=== PATIENT | male | born 1950 | race Caucasian/White ===

== ENCOUNTER 2024-10-26 12:52 | Outpatient (REF) | payer MEDICARE, SELFPAY ==
--- OUTSIDE RECORDS SUMMARY | 2024-10-26 13:27 | XMS_ITS | Encounter Summary ---
Author Organization [facility] Address [address] [place] [id number] Phone Care Team Providers Care Lathe Puller Name Role Phone Viktor Bella Primary Care Provid er Travon Ortega MD Unavailable +1- Radha Gonzalez MD Unavailable [phone] Tremaine Willams MD Unavailable [phone] Gerber Pereira MD, PhD Unavailable Travon Ortega MD Unavailable +- Encounter Details Date Type Department Care Team (Late st Contact Info) Description 10/11/2021 Procedure Pass [facility] Periop [address] [place] [address] Social History Tobacco Use Types Packs/Day Years Used Date Smoking Tobacco: Former Cigarettes 0.5 5 0 03/24/1994 - 03/24/1999 Smokeless Tobacco: Never Alcohol Use Standard Drinks/Week Comments Yes 0 (1 standard drink = 0.6 oz pure alcohol) very rarely has an alcoholic drink Sex and Gender Information Value Date Recorded Sex Assigned at Not on file Legal Sex Male 11:09 AM EDT Gender Identity Not on file Sexual Orientation Not on file documented as of this encounter Plan of Treatment Not on file documented as of this encounter Visit Diagnoses Not on filedocumented in this encounter Care Teams Lathe Puller Relationship Specialty Start Date End Date Viktor Bella PA [address] [place] [address] PCP - General Unknown Provider Specialty 07/19/21 Travon Ortega MD [address] [address] [place] [phone] [email or web address] Urology 07/19/21 Radha Gonzalez MD [address] [place] [address] [email or web address] Medical Oncology 07/20/21 Tremaine Willams MD [address] [place] [address] [email or web address] 07/20/21 Gerber Pereira MD, PhD [address] [place] [id number] [email or web address] Radiation Oncology 07/20/21 Travon Ortega MD [address] [phone] [email or web address] Urology 08/08/21 documented as of this encounter Additional Source Comments The information contained in this document represents components of the legal health record. It is not the complete legal health record.[facility]
--- OUTSIDE RECORDS SUMMARY | 2024-10-26 13:28 | XMS_ITS ---
Author Name [facility] Organization Unknown Care Team Organization Name Specialty Phone Email Start Date End Da te [facility] SASHA CHÁVEZ Primary Care 08/30/2022 4 [facility] Ewa Deelon Primary Care 01/29/2022 4
--- OUTSIDE RECORDS SUMMARY | 2024-10-26 13:28 | XMS_ITS | Clinical Summary ---
Author Organization 175 [facility] Address [address] [place] [address] Phone Care Team Providers Care Teacher Specialist Name Role Phone Viktor Bella Primary Care Provider [phone] Allergies No known active allergies Medications ibuprofen (ADVIL,MOTRIN) 200 mg tablet 2 tabs bid prn Active lovastatin (MEVACOR) 20 mg tablet Take 1 tablet (20 mg total) by mouth at bedtime. at bedtime. 90 tablet 3 06/16/2024 Active valsartan (DIOVAN) 160 mg tablet Take 1 tablet (160 mg total) by mouth 1 (one) time each day. 90 tablet 3 06/16/2024 Active aspirin 81 mg EC tablet Take 1 tablet (81 mg total) by mouth daily. 10/11/2021 Active multivitamin (multivitamin-ir on-minerals) tablet Take 1 tablet by mouth daily. Active Active Problems Problem Noted Date Diagnosed Date Prostate cancer ([facility] V24, [facility] V28) 10/29 Overview (03/02/2024): prostatectomy Rosy Leela september 2021 Elevated PSA 05/08/2021 LVH (left ventricular hypertrophy) 04/28/2017 Obstructive sleep apnea 03/11/2013 PLMD (periodic limb movement disorder) 3 Erectile dysfunction 07/29/2012 Hyperlipidemia 02/04/2012 Colon polyp 11/30/2008 Overview (03/02/2024): Last colonoscopy 2000, two polyps Hypertension 11/30/2008 Psoriasis 11/30/2008 Psoriatic arthritis ([facility] V24, [facility] V28) 0 11/30/2008 Vision loss 11/30/2008 Overview (03/02/2024): 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 Encounters Date Type Department Care Team Description 09/23/2024 12:45 PM EDT Office Visit Adult Medicine [address] [phone] Kathryn Meyer PA Urine frequency (Primary Dx); Stress incontinence of urine; Microscopic hematuria; History of prostate cancer 08/19/2024 9:30 AM EDT Office Visit Adult [address] [phone] Kathryn Meyer PA Primary hypertension (Primary Dx) from Last 3 Months Immunizations Name Administration Dates Next Due Influenza Quadravalent, MDCK , 0.5ml, with preservative (Flucelvax) 6mo and older 03/19/2017 Influenza trivalent, 0.5mL ( Fluad) 65yo and older 12/17/2023,12/12/2022,02/09/2020,02/04,12/02/2017 Influenza trivalent, 0.5mL, preservative free (Fluarix; FluLaval; Fluzone) ages 6mo and older (Afluria) 3 years and older 01/18/2016,12/08/2014,01/26/2014,02/03 Influenza, Unspecified 03/08/2022,12/18/2020 [email or web address] SARS-CoV-2 COVID-19, mRNA, LNP-S, preservative free 03/08/2022,12/18/2020 Pneumococcal conjugate 20 va lent (Prevnar 20, PCV 20) 2mo and older 06/16/2024 Pneumococcal polysaccharide 23 valent (Pneumovax 23) 2yo and older 02/04/2019 Td Tetanus diptheria (Tdvax) 7yo and older 02/04/2019 Tdap Tetanus diptheria acell ular pertussis (Boostrix; Adacel) 7yo and older 11/30/2008 Surgical History Surgery Date Site/Laterality Comments COLONOSCOPY 03/03/2009 PROCEDURE: HISTORICAL COLONOSCOPY; COMMENT: diverticulosis and hemorrhoids; repeat in five years COLONOSCOPY 2002 [facility] PROCEDURE: HISTORICAL COLONOSCOPY; COMMENT: sigmoid adenoma COLONOSCOPY 04/21/2014 PROCEDURE: HISTORICAL COLONOSCOPY; COMMENT: tics and hemorrhoids; repeat in in 5 yrs OTHER SURGICAL HISTORY PROCEDURE: HISTORY OTHER; COMMENT: left eye removed 11 COLONOSCOPY 09/2019 PROCEDURE: HISTORICAL COLONOSCOPY; COMMENT: normal repeat 5 years Medical History Medical History Date Comments Psoriasis 11/30/2008 DX:Psoriasis Psoriatic arthritis (CMS/HCC V24, CMS/HCC V28) 11/30/2008 DX:Psoriatic arthritis ([facility]) Hypertension 11/30/2008 DX:Hypertension Colon polyp 11/30/2008 DX:Colon polyp Vision loss 11/30/2008 DX:Vision loss; COMMENT: 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 Family history of prostate cancer 03/14/2011 DX:Family history of prostate cancer Hyperlipidemia 02/04/2012 DX:Hyperlipidemi a Erectile dysfunction 07/29/2012 DX:Erectile dysfunction Obstructive sleep apnea 03/11/2013 DX:Obstr uctive sleep apnea PLMD (periodic limb movement disorder) 3 DX:PLMD (periodic limb movement disorder) Family History Medical History Relation Name Comments Arthritis Brother 1 Other: etoh abuse Brother 2 Arthritis Father CABG Father Hyperlipidemia Father Hypertension Father Prostate cancer Father Stroke Father Arthritis Mother Other cancer Mother not sure Lung cancer Uncle 1 smoker Relation Name Status Comments Brother 1 Alive Alcohol abuse Brother 2 Father (Age 84) Prostate c ancer, hypertension,, CABG, stroke, CHF Mother Alive ovarian cancer, dementia Uncle 1 lung ca smoker Uncle 2 cancer - not mcclure re what type Social History Tobacco Use Types Packs/Day Years Used Date Smoking Tobacco: Former Cigarettes 0.3 4.3 0 12/01/1974 - 03/24/1979 Smokeless Tobacco: Never Tobacco Cessation:Counseling Given: Not Answered Alcohol Use Standard Drinks/Week Comments Yes 0 (1 standard drink = 0.6 oz pur e alcohol) Housing Instability Answer Date Recorde d Are you worried that in the next 2 months you may not have stable housing? No 06/15/2024 Food Access & Nutrition Answer Date Rec orded Do you have access to a vari ety of food including fruits and vegetables? Yes 06/15/2024 Access to Healthcare Answer Date Record ed Within the last 3 months, ho w many times did you visit the emergency department for your medical care? 0 06/15/2024 Health Literacy Answer Date Recorded How often do you need to hav e someone help you when you read instructions, pamphlets, or other written material from your doctor or pharmacy? Never 06/15/2024 Caregiver: How often do you need to have someone help you when you read instructions, pamphlets, or other written material from your doctor or pharmacy? Not on file 06/15/2024 Financial Risk Answer Date Recorded How hard is it for you to pa y for the very basics like food, housing, medical care, and air conditioning / heating? Not very hard 06/15/2024 Transportation Answer Date Recorded Has the lack of transportati on kept you from meetings, work, or from getting things needed for daily living? No Has the lack of transportati on kept you from medical appointments or from getting medications? No 06/15/2024 Social Isolation Answer Date Recorded How often do you feel lonely or isolated from th ose around you? Never 06/15/2024 Food Risk Answer Date Recorded Within the past 12 months we worried whether our food would run out before we got money to buy more. Never true 06/15/2024 Within the past 12 months th e food we bought just didn't last and we didn't have money to get more. Never true 06/15/2024 Dependent Care Answer Date Recorded Do you need help finding or paying for care for your loved ones. For example, teacher early childhood development or elderly care for an older adult? No 06/15/2024 Education Answer Date Recorded Do you think completing more education or training, like finishing a GED, going to college, or learning a trade, would be helpful for you? No 06/15/2024 Employment and Income Answer Date Recor ded During the last four weeks, have you been actively looking for work? No 06/15/2024 Living Situation Answer Date Recorded What is your living situation? 0 06/15/2024 Sex and Gender Information Value Date Recorded Sex Assigned at Not on file Legal Sex Male 9:13 AM EST Gender Identity Not on file Sexual Orientation Not on file Obstetrics History Last Filed Vital Signs Vital Sign Reading Time Taken Comments Blood Pressure 135/64 09/23/2024 12:48 PM EDT Pulse 63 09/23/2024 12:48 PM EDT Temperature 36.5 C (97.7 F) 09/23/2024 12:48 PM EDT Respiratory Rate 16 09/23/2024 12:48 PM EDT Oxygen Saturation 95% 09/23/2024 12:48 PM EDT Inhaled Oxygen Concentration - - Weight 105 kg (231 lb 3.2 oz) 09/23/2024 12:48 P M EDT Height 177.8 cm (5' 10 ) 09/23/2024 12:48 PM EDT Body Mass Index 33.17 09/23/2024 12:48 PM EDT Plan of Treatment Upcoming Encounters Date Type Department Care Team (Late st Contact Info) Description 02/25/2025 8:30 AM EST Office Visit Adult Medicine [facility] [address] [place] [phone] Viktor Bella PA [address] [place] [address] 06/14/2025 3:30 PM EDT Office Visit Pulmonolgy - [place] 175 [facility] [address] [place] [phone] Eda Steinberg MD 175 [facility] [address] [place] [address] Health Maintenance Due Date Last Done Comments Zoster Vaccines (1 of 2) 09/18/1969 COVID-19 Vaccine ( season) 2023 03/08/2022, 12/18/2020, 06/07/2020, Additional history exists Colorectal Cancer Screening: Colonoscopy 10/13/2024 10/14/2019, 10/14/2019 Influenza Vaccine (#1) 2024 , 12/12/2022, 03/08/2022, Additional history exists Medicare Annual Wellness Visit 12/16/2024 12/17/2023 Social Influencers of Health Screening 06/15/2025 06/15/2024 Hypertension/CHF/CAD Annual BMP Blood Test 06/16/2025 06/16/2024, 12/17/2023, 12/17/2023, Additional history exists Falls Risk Assessment 09/23/2025 09/23/2024 RSV Immunization Adult Patients (1 - 1-dose 75+ series) 09/18/2027 Cholesterol Screening (Lipid Panel) 12/16/2028 12/17/2023, 12/17/2023 DTaP,Tdap,and Td Vaccines (3 - Td or Tdap) 02/04/2029 02/04/2019, 11/30/2008 Hepatitis C Screening Completed 07/29/2012 Abdominal Aortic Aneurysm (AAA) Screen Completed 12/10/2017, 12/10/2017 Pneumococcal Vaccine: 50+ Years Completed 06/16/2024, 02/04/2019 Depression Screening Completed 09/22/2024, 12/17/19 24 HIB Vaccines Aged Out No longer eligi ble based on patient's age to complete this topic HPV Vaccines Aged Out No longer eligi ble based on patient's age to complete this topic Hepatitis A Vaccines Aged Out No long er eligible based on patient's age to complete this topic Hepatitis B Vaccines Aged Out No long er eligible based on patient's age to complete this topic IPV Vaccines Aged Out No longer eligi ble based on patient's age to complete this topic MMR Vaccines Aged Out No longer eligi ble based on patient's age to complete this topic Meningococcal ACWY Vaccine Aged Out N o longer eligible based on patient's age to complete this topic Meningococcal B Vaccine Aged Out No l onger eligible based on patient's age to complete this topic RSV Immunization Patients Under 20 months Aged Out No longer eligible based on patient's age to complete this topic Varicella Vaccines Aged Out No longer eligible based on patient's age to complete this topic Procedures Procedure Name Priority Date/Time Associated Diagnosis Comments CULTURE URINE Routine 09/23/2024 1:18 PM EDT Urine frequency POC URINE NON-AUTO W/O MICRO Routine 09/23/2024 1:16 PM EDT Urine frequency POC GLUCOSE Routine 09/23/2024 1:15 PM EDT Urine frequency COMPREHENSIVE METABOLIC PANEL Routine 06/16/2024 9:34 AM EDT Subjective memory complaints Other hyperlipidemia Primary hypertension Obstructive sleep apnea LVH (left ventricular hypertrophy) Elevated PSA PLMD (periodic limb movement disorder) Prostate cancer ([facility] V24, [facility] V28) Need for vaccination against Streptococcus pneumoniae Hearing loss of right ear, unspecified hearing loss type DEPRESSION SCREENING Routine 12/17/2023 LIPID PANEL Routine 12/17/2023 COLONOSCOPY Routine 10/14/2019 US ABDOMINAL AORTA REAL TIME SCREEN STUDY AAA Routine 12/10/2017 7:46 AM EDT Hyperlipidemia, unspecified Essential (primary) hypertension Acute maxillary sinusitis, unspecified Arthropathic psoriasis, unspecified ([facility] V24, [facility] V28) Unspecified conjunctivitis Encounter for general adult medical examination without abnormal findings Encounter for immunization HEPATITIS C SCREENING Routine 07/29/2012 from Last 3 Months or Most Recently Relevant to Health Maintenance Results * Culture urine (09/23/2024 1:18 PM EDT) Culture, Urine No growth 09/24/2024 1:07 PM EDT [facility] Urine Urine specimen obtained by clean catch procedure / Unknown Non-blood Collection / Unknown 09/23/2024 1:18 PM EDT 09/23/2024 1:18 PM EDT us Kathryn Mitch [facility] MICROBIOLOGY - GENERAL ORDER SOLEDAD Final Result [facility] [address] [place] [address], * (ABNORMAL) POC Urine Non-Auto W/O Micro (09/23/2024 1:16 PM EDT) Leukocytes UA POC Negative Negative Nitrite UA POC Negative Negative Urobilinogen UA POC Negative Negative Protein UA POC Negative Negative PH UA POC 5.0 5.0 - 9.0 Blood UA POC Trace(A) Negative, Trace Specific Guston UA POC 1.015 1.001 - 1.035 Ketones UA POC 1+(A) Negative Bilirubin UA POC Negative Negative Glucose UA POC Normal Normal, Trace Color UA POC Dark Yellow CLARITY, URINE POC Clear Urine Urine specimen obtained by clean catch procedure / Unknown 09/23/2024 1:16 PM EDT us Kathryn Meyer PA POINT OF CARE TEST ENTER/EDIT OR DERABLES Final Result * POC glucose manually resulted (09/23/2024 1:15 PM EDT) Glucose POC 102 mg/dL Blood Capillary blood specimen / Unknown 09/23/2024 1:15 PM EDT us Kathryn Meyer PA POINT OF CARE TEST ENTER/EDIT OR DERABLES Final Result * Comprehensive metabolic panel (06/16/2024 9:34 AM EDT) [facility] Sodium 145 133 - 145 mmol/L LAB CHEMISTRY METHOD 06/16/2024 4:14 PM [facility] Potassium 4.5 3.5 - 5.5 mmol/L LAB CHEMISTRY METHOD 06/16/2024 4:14 PM [facility] Chloride 109 96 - 110 mmol/L LAB CHEMISTRY METHOD 06/16/2024 4:14 PM [facility] CO2 31 21 - 32 mmol/L LAB CHEMISTRY METHOD 06/16/2024 4:14 PM [facility] Anion Gap 5 3 - 11 LAB CHEMISTRY METHOD 06/16/2024 4:14 PM [facility] Glucose 97 70 - 100 mg/dL LAB CHEMISTRY METHOD 06/16/2024 4:14 PM [facility] BUN 17 5 - 25 mg/dL LAB CHEMISTRY METHOD 06/16/2024 4:14 PM [facility] Creatinine 1.02 0.70 - 1.30 mg/dL LAB CHEMISTRY METHOD 06/16/2024 4:14 PM [facility] eGFR 79 >=60 mL/min/1. 73m2 LAB CHEMISTRY METHOD 06/16/2024 4:14 PM [facility] Comment:Calculation based on the Chronic Kidney Disease Epidemiology Collaboration (CKD-EPI) equation refit without adjustment for race. BUN/Creatinine Ratio 16.7 LAB CHEMISTRY METHOD 06/16/2024 4:14 PM [facility] Calcium 9.7 8.5 - 10.5 mg/dL LAB CHEMISTRY METHOD 06/16/2024 4:14 PM [facility] AST (SGOT) 32 10 - 42 unit/L LAB CHEMISTRY METHOD 06/16/2024 4:14 PM [facility] ALT (SGPT) 33 10 - 60 unit/L LAB CHEMISTRY METHOD 06/16/2024 4:14 PM [facility] Alkaline Phosphatase 75 42 - 121 unit/L LAB CHEMISTRY METHOD 06/16/2024 4:14 PM [facility] Total Protein 6.7 6.0 - 8.0 g/dL LAB CHEMISTRY METHOD 06/16/2024 4:14 PM [facility] Albumin 4.1 3.2 - 5.0 g/dL LAB CHEMISTRY METHOD 06/16/2024 4:14 PM [facility] Total Bilirubin 0.5 0.0 - 1.4 mg/dL LAB CHEMISTRY METHOD 06/16/2024 4:14 PM [facility] Blood Venous blood specimen / Unknown Venipuncture / Unknown 06/16/2024 9:34 AM EDT 06/16/2024 9:34 AM EDT us Viktor CABALLERO LAB BLOOD ORDERABLES Lou l Result [facility] [address] [place] [address], [place] [phone] * Depression Screening (12/17/2023) Depression Screening abstracted Historical Provider HEALTH MAINTENANCE Final Result * Lipid panel (12/17/2023) Pathologist [facility] LDL/HDL Ratio 3 0 - 4 Triglycerides 45 0 - 150 mg/dL Cholesterol 176 0 - 200 mg/dL HDL 67 >=40 mg/dL LDL Cholesterol 100 0 - 100 mg/dL Blood Venous blood specimen / Unknown Historical Provider LAB BLOOD ORDERABLES Lou l Result * Colonoscopy (10/14/2019) Colonoscopy no interpretation , abstracted Anatomical Region Laterality Modality Other Historical Provider HEALTH MAINTENANCE Final Result * US ABDOMINAL AORTA REAL TIME SCREEN STUDY AAA (12/10/2017 7:46 AM EDT) Anatomical Region Laterality Modality Ultrasound 12/01/2017 4:19 PM EDT Narrative 12/10/2017 10:48 AM EDT History: Screening for abdominal aortic aneurysm. Ultrasound of the abdominal aorta: The abdominal aorta is normal in course, caliber and configuration. Proximal aortic AP diameter is 2.1 cm maximum. Mid aortic diameter is 1.9 cm, and distal aortic diameter is 1.6 cm. The common iliac arteries are normal in caliber as well. IMPRESSION: Negative screening examination for abdominal aortic aneurysm. Procedure Note Efrain Bunch MD - 03/12/2022 History: Screening for abdominal aortic aneurysm. Ultrasound of the abdominal aorta: The abdominal aorta is normal incourse, caliber and configuration. Proximal aortic AP diameter is 2.1 cm maximum. Mid aorticdiameter is 1.9 cm, and distal aortic diameter is 1.6 cm. The common iliac arteries are normalin caliber as well. IMPRESSION: Negative screening examination for abdominal aortic aneurysm. Viktor CABALLERO IMSebas US PROCEDURES Final R esult * Hepatitis C Screening (07/29/2012) Hepatitis C Screening abstracted us Historical Provider HEALTH MAINTENANCE Final Result from Last 3 Months or Most Recently Relevant to Health Maintenance Insurance [employer] [place] [employer]AGE Care Teams Teacher Specialist Relationship Specialty Start Date End Date Viktor Bella PA [address] [place] [address] PCP - General Internal Medicine 02/09/20
--- OUTSIDE RECORDS SUMMARY | 2024-10-26 13:28 | XMS_ITS | Clinical Summary ---
Author Organization [facility] Address [address] [place] [address] Care Team Providers Care Client Relationship Consultant Name Role Phone Unavailable Primary Care Provider Unavailabl e Allergies No known active allergies Medications * This document contains information received from the source organization and may not represent a complete record from that organization. No known medications Social History Tobacco Use Types Packs/Day Years Used Date Smoking Tobacco: Former Alcohol Use Standard Drinks/Week Comments Not Asked 0 (1 standard drink = 0.6 oz pur e alcohol) Sex and Gender Information Value Date Recorded Sex Assigned at Not on file Legal Sex Male 11:02 AM EDT Gender Identity Not on file Sexual Orientation Not on file Last Filed Vital Signs Vital Sign Reading Time Taken Comments Blood Pressure 138/82 09/06/2013 2:39 PM EDT Pulse 80 09/06/2013 2:39 PM EDT Temperature - - Respiratory Rate - - Oxygen Saturation - - Inhaled Oxygen Concentration - - Weight 109 kg (241 lb) 09/06/2013 2:39 PM EDT Height 182.9 cm (6') 09/06/2013 2:39 PM EDT Body Mass Index 32.69 09/06/2013 2:39 PM EDT Plan of Treatment Health Maintenance Due Date Last Done Comments Hepatitis C Screening 1950 DTaP/Tdap/Td (1 - Tdap) 1970 Pneumococcal 50+ years (1 of 1 - PCV) 2002 Zoster (Shingrix) (1 of 2) 2002 Ab[facility] 2017 COVID-19 Vaccine ( - 2023-2 5 season) 2023 Influenza (#1) 2024 RSV (1 - 1-dose 75+ series) 09/18/2027 HPV Vaccine (No Doses Required) Completed Hep A Aged Out No longer eligi ble based on patient's age to complete this topic Hep B Aged Out No longer eligi ble based on patient's age to complete this topic Hib Aged Out No longer eligi ble based on patient's age to complete this topic Meningococcal ACWY Aged Out No longer eligible based on patient's age to complete this topic Zoster (Zostavax) Discontinued
== END 2024-10-26 12:53 | disposition home or self-care (01) ==
LOC: HO.SH 12:52
PROVIDERS: Visit Provider Physician Assistant Medical
DX: Z01.118 Encounter for examination of ears and hearing with other abnormal findings (principal); H90.3 Sensorineural hearing loss, bilateral
CPT/HCPCS: 92557; 92567

== ENCOUNTER 2024-11-24 12:51 | Outpatient (AMB) | payer OTHER, SELFPAY ==
--- NOTE | 2024-11-24 13:10 | A.OFFVIS_ITS ---
Intake Visit Reasons: Memory Complaints Allergies No Known Allergies Allergy (Verified 11/17/24 13:41) HPI Comments Details: The patient is a 74-year-old male presenting with memory concerns. Memory issues have persisted for over a year and are described as gradual and ongoing. The patient struggles to recall instructions or details shortly after being told, and there is a reported familial history of dementia. These issues are noteworthy in light of his mother's history with dementia. Additionally, there is a significant history of hearing loss. The patient first noticed this condition during a phone call, prompting visits to a hearing center, where potential interventions like hearing aids were considered. The hearing loss was realized suddenly, although it had likely progressed unnoticed for a considerable time. He denies any history of diabetes but has essential hypertension, which he describes as long-standing. 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 He reports minimal alcohol consumption and no recent stress. [facility] Medical History (Updated 11/24/24 @ 13:39 by Ana Bowens MD) Vision loss Psoriatic arthritis Psoriasis Colon polyp HLD (hyperlipidemia) Erectile dysfunction PLMD (periodic limb movement disorder) EVA (obstructive sleep apnea) Left ventricular hypertrophy Prostate cancer Memory changes Hypertension Family History (Updated 11/17/24 @ 13:41 by Andre Gates [facility]) Mother Cancer Arthritis Father Prostate cancer HLD (hyperlipidemia) Hypertension Arthritis Stroke CABG (coronary artery bypass graft) planned Brother Arthritis H/O ETOH abuse Review of Systems Const Details: - Neurological: Reports memory issues over the past year; denies recent stress; history of essential hypertension. - Auditory: Reports hearing loss, recognized suddenly but progressed over time. - Ophthalmological: Artificial left eye due to infant injury. - Endocrinological: Denies diabetes. - Cardiovascular: Reports history of hypertension. - Psychological: Denies recent stress. Physical Exam Neuro Other: Mental Status: Alert and oriented to person, place, and time. Normal attention. Normal spontaneous speech, fluency, and comprehension. [place] score is 25. Cranial Nerves: Left eye is prosthetic. Right eye pupil is round reactive and extraocular muscles are intact. CN V: Facial sensation is normal. CN VII: Facial movements symmetrical. CN VIII: Hearing intact to bedside conversation is okay. CN IX, X: Palate elevates symmetrically. CN XI: Shoulder shrug and head turn symmetrical. CN XII: Tongue midline without atrophy or fasciculations. Motor: Deep tendon reflexes are trace to absent. Extrapyramidal: Full facial expressions and blinking. No rigidity. Movements are appropriate with no tremor or abnormality. Speech: Normal; no dysarthria or tremor. Assessment & Plan Assessment & Plan (1) MCI (mild cognitive impairment): Comment: MOCA at off on Nov 24, 2024: 25 Labs at [facility] in 2024: B12 621, Folate 20, TSH 1.66 MRI brain WWO at [facility] in Jun 2024: Mild MVD Code(s): G31.84 - Mild cognitive impairment of uncertain or unknown etiology Category: Medical Plan: During the consultation, I discussed the primary concern of memory impairment with the patient and his friend, related to possible cognitive decline and family history of dementia. I explained the likelihood as well as the possibility of early-stage Alzheimer's disease as a contributory factor, and we coordinated for a blood test to explore this further. The option of an advanced diagnostic assessment was outlined if initial tests are inconclusive. Follow-up was established for one month to review test results and reassess management plans accordingly. All points of discussion were confirmed comprehensively with the patient and friend for mutual understanding and consent. Plan Impression: Mild cognitive impairment with fair suspicion of Alzheimer Recommendation: Serum test to check for cerebral beta amyloid load. His was advised to order picker/assembler brain CD for review at next was Orders: Orders ABeta 42/40 p-tau 217 Eval Today G31.84 - Mild cognitive impairment of uncertain or unknown etiology Coding Level of Care Code New Pt Level 5 (44694) Diagnoses MCI (mild cognitive impairment) G31.84
--- OUTSIDE RECORDS SUMMARY | 2024-11-24 15:15 | XMS_ITS | Clinical Summary ---
Author Organization [address] [facility] Address [address] [place] [address] Phone Care Team Providers Care Toe Stapler Name Role Phone Viktor Bella Primary Care Provider [phone] Allergies No known active allergies Medications ibuprofen [...] Problem Noted Date Diagnosed Date Prostate cancer ([facility] V24, [facility] V28) 10/29 Overview (03/02/2024): prostatectomy Rosy Leela september 2021 Elevated PSA 05/08/2021 LVH (left ventricular hypertrophy) 04/28/2017 Obstructive sleep apnea 03/11/2013 PLMD (periodic limb movement disorder) 3 Erectile dysfunction 07/29/2012 Hyperlipidemia 02/04/2012 Colon polyp 11/30/2008 Overview (03/02/2024): Last colonoscopy 2000, two polyps Hypertension 11/30/2008 Psoriasis 11/30/2008 Psoriatic arthritis ([facility] V24, [facility] V28) 0 11/30/2008 Vision loss 11/30/2008 Overview (03/02/2024): 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 Encounters Date Type Department Care Team Description 09/23/2024 12:45 PM EDT Office Visit Adult Medicine [address] [phone] Kathryn Meyer PA Urine frequency (Primary Dx); Stress incontinence of urine; Microscopic hematuria; History of prostate cancer from Last 3 Months Immunizations Name Administration Dates Next Due Influenza Quadravalent, MDCK , 0.5ml, with preservative (Flucelvax) 6mo and older 03/19/2017 Influenza trivalent, 0.5mL ( Fluad) 65yo and older 12/17/2023,12/12/2022,02/09/2020,02/04,12/02/2017 Influenza trivalent, 0.5mL, preservative free (Fluarix; FluLaval; Fluzone) ages 6mo and older (Afluria) 3 years and older 01/18/2016,12/08/2014,01/26/2014,02/03 Influenza, Unspecified 03/08/2022,12/18/2020 Pfizer SARS-CoV-2 COVID-19, mRNA, LNP-S, preservative free 03/08/2022,12/18/2020 [...] hemorrhoids; repeat in five years COLONOSCOPY 2002 [facility] PROCEDURE: HISTORICAL COLONOSCOPY; COMMENT: sigmoid adenoma COLONOSCOPY 04/21/2014 PROCEDURE: HISTORICAL COLONOSCOPY; COMMENT: tics and hemorrhoids; repeat in in 5 yrs OTHER SURGICAL HISTORY PROCEDURE: HISTORY OTHER; COMMENT: left eye removed 11 COLONOSCOPY 09/2019 PROCEDURE: HISTORICAL COLONOSCOPY; COMMENT: normal repeat 5 years Medical History Medical History Date Comments Psoriasis 11/30/2008 DX:Psoriasis Psoriatic arthritis (CMS/HCC V24, CMS/HCC V28) 11/30/2008 DX:Psoriatic arthritis (HCC) Hypertension 11/30/2008 DX:Hypertension Colon polyp 11/30/2008 DX:Colon [...] care for your loved ones. For example, housekeeper child care or elderly care for an older adult? [...] 8:30 AM EST Office Visit Adult Medicine [facility] [address] [place] [address] Viktor Bella PA [address] [place] [address] 06/14/2025 3:30 PM EDT Office Visit Pulmonolgy [facility] [address] [facility] [address] [place] [address] Eda Steinberg MD [address] [place] [address] Health Maintenance Due Date Last Done Comments Zoster Vaccines (1 of 2) 09/18/1969 Colorectal Cancer Screening: Colonoscopy 10/13/2024 10/14/2019, 10/14/2019 COVID-19 Vaccine ( season) 2024 03/08/2022, 12/18/2020, 06/07/2020, Additional history exists Influenza Vaccine (#1) 2024 , 12/12/2022, 03/08/2022, [...] PLMD (periodic limb movement disorder) Prostate cancer (CMS/HCC V24, CMS/HCC V28) Need for vaccination against Streptococcus pneumoniae Hearing loss of right ear, unspecified hearing loss type HM DEPRESSION SCREENING Routine 12/17/2023 LIPID PANEL Routine 12/17/2023 COLONOSCOPY Routine 10/14/2019 US ABDOMINAL AORTA REAL TIME SCREEN STUDY AAA Routine 12/10/2017 7:46 AM EDT Hyperlipidemia, unspecified Essential (primary) hypertension Acute maxillary sinusitis, unspecified Arthropathic psoriasis, unspecified ([facility] V24, [facility] V28) Unspecified conjunctivitis Encounter for general adult medical examination without abnormal findings Encounter for immunization HEPATITIS C SCREENING Routine 07/29/2012 from Last 3 Months or Most Recently Relevant to Health Maintenance Results * Culture urine (09/23/2024 1:18 PM EDT) Pathologist [facility] Culture, Urine No growth 09/24/2024 1:07 PM EDT [facility] Urine Urine specimen obtained by clean catch procedure / Unknown Non-blood Collection / Unknown 09/23/2024 1:18 PM EDT 09/23/2024 1:18 PM EDT Kathryn Meyer PA LAB MICROBIOLOGY - GENERAL ORDER [place] Final Result [facility] [address] [place] [address], [place] [phone] * (ABNORMAL) POC Urine Non-Auto W/O Micro (09/23/2024 1:16 PM EDT) Leukocytes UA POC Negative Negative Nitrite UA POC Negative Negative Urobilinogen UA POC Negative Negative Protein UA POC Negative Negative PH UA POC 5.0 5.0 - 9.0 Blood UA POC Trace(A) Negative, Trace Specific [place] UA POC 1.015 1.001 - 1.035 Ketones UA POC 1+(A) Negative Bilirubin UA POC Negative Negative Glucose UA POC Normal Normal, Trace Color UA POC Dark Yellow CLARITY, URINE POC Clear Urine Urine specimen obtained by clean catch procedure / Unknown 09/23/2024 1:16 PM EDT Kathryn Meyer PA POINT OF CARE TEST ENTER/EDIT OR DERABLES Final Result * POC glucose manually resulted (09/23/2024 1:15 PM EDT) Pathologist [facility] Glucose POC 102 mg/dL Blood Capillary blood specimen / Unknown 09/23/2024 1:15 PM EDT Kathryn Meyer PA POINT OF CARE TEST ENTER/EDIT OR DERABLES Final Result * Comprehensive metabolic panel (06/16/2024 9:34 AM EDT) [facility] Sodium 145 133 - 145 mmol/L LAB CHEMISTRY METHOD 06/16/2024 4:14 PM [facility] Potassium 4.5 3.5 - 5.5 mmol/L LAB CHEMISTRY METHOD 06/16/2024 4:14 PM [facility] Chloride 109 96 - 110 mmol/L LAB CHEMISTRY METHOD 06/16/2024 4:14 PM [facility] CO2 31 21 - 32 mmol/L LAB CHEMISTRY METHOD 06/16/2024 4:14 PM [facility] Anion Gap 5 3 - 11 LAB CHEMISTRY METHOD 06/16/2024 4:14 PM [facility] Glucose 97 70 - 100 mg/dL LAB CHEMISTRY METHOD 06/16/2024 4:14 PM [facility] BUN 17 5 - 25 mg/dL LAB CHEMISTRY METHOD 06/16/2024 4:14 PM [facility] Creatinine 1.02 0.70 - 1.30 mg/dL LAB CHEMISTRY METHOD 06/16/2024 4:14 PM [facility] eGFR 79 >=60 mL/min/1. 73m2 LAB CHEMISTRY METHOD 06/16/2024 4:14 PM [facility] Comment:Calculation based on the Chronic Kidney Disease Epidemiology Collaboration (CKD-EPI) equation refit without adjustment for race. BUN/Creatinine Ratio 16.7 LAB CHEMISTRY METHOD 06/16/2024 4:14 PM T [facility] Calcium 9.7 8.5 - 10.5 mg/dL LAB CHEMISTRY METHOD 06/16/2024 4:14 PM [facility] AST (SGOT) 32 10 - 42 unit/L LAB CHEMISTRY METHOD 06/16/2024 4:14 PM [facility] ALT (SGPT) 33 10 - 60 unit/L LAB CHEMISTRY METHOD 06/16/2024 4:14 PM [facility] Alkaline Phosphatase 75 42 - 121 unit/L LAB CHEMISTRY METHOD 06/16/2024 4:14 PM [facility] Total Protein 6.7 6.0 - 8.0 g/dL LAB CHEMISTRY METHOD 06/16/2024 4:14 PM [facility] Albumin 4.1 3.2 - 5.0 g/dL LAB CHEMISTRY METHOD 06/16/2024 4:14 PM [facility] Total Bilirubin 0.5 0.0 - 1.4 mg/dL LAB CHEMISTRY METHOD 06/16/2024 4:14 PM [facility] Blood Venous blood specimen / Unknown Venipuncture / Unknown 06/16/2024 9:34 AM EDT 06/16/2024 9:34 AM EDT Viktor CABALLERO LAB BLOOD ORDERABLES Lou l Result [facility] [address] [place] [address], * Depression Screening (12/17/2023) Pathologist [facility] Depression Screening abstracted Historical Provider HEALTH MAINTENANCE Final Result * Lipid panel (12/17/2023) [facility] LDL/HDL Ratio 3 0 - 4 Triglycerides 45 0 - 150 mg/dL Cholesterol 176 0 - 200 mg/dL HDL 67 >=40 mg/dL LDL Cholesterol 100 0 - 100 mg/dL Blood Venous blood specimen / Unknown Result [facility] Historical Provider LAB BLOOD ORDERABLES Lou l Result * Colonoscopy (10/14/2019) Colonoscopy no interpretation , abstracted Anatomical Region Laterality Modality Other Result [facility] Historical Provider HEALTH MAINTENANCE Final Result * ABDOMINAL AORTA REAL TIME SCREEN STUDY AAA [...] examination for abdominal aortic aneurysm. Viktor CABALLERO IMG US PROCEDURES Final R esult * Hepatitis C Screening (07/29/2012) Hepatitis C Screening abstracted Historical Provider HEALTH MAINTENANCE Final Result from Last 3 Months or Most Recently Relevant to Health Maintenance Insurance MEDICARE [employer]ALTH [place] [employer]VANTAGE Care Teams Toe Stapler Relationship Specialty Start Date End Date Viktor Bella PA [address] [place] [id number] PCP - General Internal Medicine 02/09/20
--- OUTSIDE RECORDS SUMMARY | 2024-11-24 15:15 | XMS_ITS | Clinical Summary ---
Author Organization [facility] Address [address] [place] [address] Care Team Providers Care Geographic Information System Surveyor Name Role Phone Unavailable Primary Care Provider [...] COVID-19 Vaccine ( - 2023-2 5 season) 2024 Influenza (#1) 2024 RSV (1 - 1-dose [...]
--- OUTSIDE RECORDS SUMMARY | 2024-11-24 15:15 | XMS_ITS | Encounter Summary ---
Author Organization [facility] Address [address] [place] [phone] Phone Care Team Providers Care Commercial Roofer Name Role Phone Viktor Bella Primary Care Provid er Travon Ortega MD Unavailable +1- Radha Gonzalez MD Unavailable [phone] Tremaine Willams MD Unavailable [phone] Gerber Pereira MD, PhD Unavailable Travon Ortega MD Unavailable +- Encounter Details Date Type Department Care Team (Late st Contact Info) Description 10/11/2021 Procedure Pass [facility] Periop [address] [place] [address] Social History Tobacco Use Types Packs/Day Years [...] on filedocumented in this encounter Care Teams Commercial Roofer Relationship Specialty Start Date End Date Viktor Bella PA [address] [place] [address] PCP - General Unknown Provider Specialty 07/19/21 Travon Ortega MD [address] [facility] [address] [place] [phone] [email or web address] Urology 07/19/21 Radha Gonzalez MD [address] [place] [address] [email or web address] 07/20/21 Tremaine Willams MD [address] [place] [address] [email or web address] 07/20/21 Gerber Pereira MD, PhD [address] [place] [id number] [email or web address] Oncology 07/20/21 Travon Ortega MD [address] [phone] [email or web address] Urology 08/08/21 documented as of this encounter Additional Source Comments The information contained in this document represents components of the legal health record. It is not the complete legal health record.[facility]
--- OUTSIDE RECORDS SUMMARY | 2024-11-24 15:15 | XMS_ITS | Clinical Summary ---
Author Organization [facility] Address [address] [place] [address] Phone Care Team Providers Care Road Equipment Operator Name Role Phone Viktor Bella Primary Care Provid er Travon Ortega MD Unavailable [phone] Radha Gonzalez MD Unavailable [phone] Tremaine Willams MD Unavailable [phone] Gerber Pereira MD, PhD Unavailable Travon Ortega MD Unavailable +1- Allergies No known active allergies Medications valsartan-hydroCH LOROthiazide (DIOVAN-HCT) 80-12.5 mg per tablet Take 1 tablet by mouth daily. 2 Active therapeutic multivitamin tablet Take 1 tablet by mouth daily. Active ibuprofen (ADVIL,MOTRIN) 200 MG tablet Take 400 mg by mouth 2 (two) times a day. Active aspirin 81 MG EC tablet Take 1 tablet (81 mg total) by mouth daily. Hold for 7 days after surgery 2 Active acetaminophen (TYLENOL) 500 mg capsule Take 2 capsules (1,000 mg total) by mouth every 6 (six) hours. 2 Active oxyCODONE 5 MG immediate release tablet Take 1 tablet (5 mg total) by mouth every 4 (four) hours as needed for moderate pain. Partial fill ok 5 tablet 2 Active senna (SENOKOT) 8.6 mg tablet Take 1 tablet by mouth daily as needed for constipation. 30 tablet 2 Active trospium (SANCTURA) 20 mg tablet Take 1 tablet (20 mg total) by mouth 2 (two) times a day as needed (bladder spasms). Do not take within 24 hours of quezada catheter removal 10 tablet 2 Active Active Problems Problem Noted Date Diagnosed Date Prostate cancer 10/11/2021 Malignant neoplasm of prostate 08/06/2021 Cancer Staging:Clinical stage from 08/08/2021:Stage IIIC(cT2a, cN0, cM0, PSA: 5.9, Grade Group: 5, 08/08/21) - Signed by Gerber Pereira MD, PhD on 08/08/2021 Family History Medical History Relation Comments Colon cancer Brother COPD Father Prostate cancer Father Dementia Mother Ovarian cancer Mother Relation Status Comments Brother Father Mother Social History Tobacco Use Types Packs/Day Years Used Date Smoking Tobacco: Former Cigarettes 0.5 5 0 03/24/1994 - 03/24/1999 Smokeless Tobacco: Never Alcohol Use Standard Drinks/Week Comments Yes 0 (1 standard drink = 0.6 oz pure alcohol) very rarely has an alcoholic drink Education Answer Date Recorded Are you interested in more education? Not on jc e 07/20/2022 Are you concerned about learning? Not on file 07/20/2022 No 07/20/2022 No 07/20/2022 Digital Access Answer Date Recorded No 08/18/2022 No 08/18/2022 No 08/18/2022 Reliable internet access at home? Not on file 08/18/2022 Device with a working camera? Not on file Sex and Gender Information Value Date Recorded Sex Assigned at Not on file Legal Sex Male 11:09 AM EDT Gender Identity Not on file Sexual Orientation Not on file Last Filed Vital Signs Vital Sign Reading Time Taken Comments Blood Pressure 143/69 10/22/2021 9:30 PM EDT Pulse 60 10/22/2021 6:47 PM EDT Temperature 36 C (96.8 F) 10/22/2021 5:43 PM EDT Respiratory Rate 18 10/22/2021 6:47 PM EDT Oxygen Saturation 98% 10/22/2021 9:30 PM EDT Inhaled Oxygen Concentration - - Weight 88.5 kg (195 lb) 10/22/2021 6:42 PM EDT Height 180.3 cm (5' 11 ) 10/22/2021 6:42 PM EDT Body Mass Index 27.2 10/22/2021 6:42 PM EDT Plan of Treatment Health Maintenance Due Date Last Done Comments LIPID PANEL 1952 DEPRESSION SCREENING 1964 SMOKING Hx and SMOKELESS TOBACCO SCREENING 1965 HEPATITIS C SCREENING 1970 ZOSTER VACCINES (1 of 2) 09/18/1971 COLOGUARD 1997 COLONOSCOPY 1997 COLORECTAL CANCER SCREENING 1997 FIT TEST 1997 FOBT 1997 SIGMOIDOSCOPY 1997 VIRTUAL COLONOSCOPY 1997 PNEUMOCOCCAL VACCINES (50+ years) (2 of 2 - PCV) 02/05/2020 02/04/2019 CREATININE LEVEL 10/22/2022 10/22/2021, , 10/11/2021, Additional history exists POTASSIUM LEVEL 10/22/2022 10/22/2021, 09/22, 10/11/2021, Additional history exists COVID-19 VACCINE ( season) 2023 12/18/2020, 06/07/2020, 05/16/2020 RSV VACCINE (1 - 1-dose 75+ series) 09/18/2027 Adult Td,Tdap Booster 02/04/2029 02/04/2019, 009 ABDOMINAL AORTIC ANEURYSM (AAA) SCREENING Completed 10/22/2021 HEPATITIS A VACCINES Aged Out No long er eligible based on patient's age to complete this topic HIB VACCINES Aged Out No longer eligi ble based on patient's age to complete this topic MENINGOCOCCAL VACCINES (ACWY) Aged Out No longer eligible based on patient's age to complete this topic MENINGOCOCCAL VACCINES (B) Aged Out N o longer eligible based on patient's age to complete this topic Medical Devices Not on file Procedures Procedure Name Priority Date/Time Associated Diagnosis Comments CT ABDOMEN/PELVIS WITH CONTRAST Routine 10/22/2021 7:27 PM EDT BASIC METABOLIC PANEL STAT 10/22/2021 6:02 PM EDT from Last 3 Months or Most Recently Relevant to Health Maintenance Results * CT ABDOMEN/PELVIS WITH CONTRAST (10/22/2021 7:27 PM EDT) Anatomical Region Laterality Modality Abdomen, Pelvis Computed Tomogra phy 10/22/2021 8:14 PM EDT Impressions 10/22/2021 8:28 PM EDT 1.Prostatectomy with simple fluid in the surgical bed measuring up to 56 mm, which may represent postoperative seroma. Differential considerations include urinoma with or without superimposed infection/abscess. 2.Left pelvic sidewall fluid collection may represent seroma. Superimposed infection cannot be excluded. 3.Hyperdense fluid along the left anterior margin of the urinary bladder likely represents hematoma. 4.Diffuse subcutaneous gas and edema over the anterior abdominal wall likely postoperative in etiology. No organized collection to suggest abscess. Narrative 10/22/2021 8:28 PM EDT Reason for exam (per EHR order): * Abdominal distension; recent surgery abd wall ecchymosis and tenderness with distention TECHNIQUE: Multidetector-row CT of the abdomen and pelvis was performed after administration of intravenous contrast using tailored dose modulation techniques. Images were reconstructed in the axial, coronal, and sagittal planes. COMPARISON: CT abdomen pelvis 07/17/2021. FINDINGS: Lower Chest: Normal. Liver: Unchanged subcentimeter left lobe hypodensity too small to characterize. Biliary System: Normal. Pancreas: Normal. Spleen: Normal. Adrenal Glands: Normal. Kidneys: Subcentimeter left renal hypodensity too small to characterize. Punctate left upper pole stone too small to characterize, series 2 image 23. Punctate right lower pole renal stone, series 5 image 44. Bowel: Colonic diverticulosis. No bowel wall thickening or distention. Mesentery, Omentum, and Peritoneum: No pneumoperitoneum. Pelvic Organs: Prostatectomy with 56 x 32 x 30 mm pocket of simple fluid in the surgical bed. A pocket of fluid along the left pelvic sidewall measuring up to 21 x 61 x 28 mm. Ill-defined hyperdense fluid anterior to the urinary bladder measuring up to 14 x 25 x 43 mm. Perivesical stranding. Lymph Nodes: Normal. Vasculature: Atherosclerotic calcifications. Bones and Soft Tissues: Multilevel degenerative changes. Subcutaneous gas throughout the anterior abdominal wall with areas of edema likely postsurgical in etiology. No organized fluid collection to suggest abscess. Procedure Note Smith Hoyos MD - 10/22/2021 Reason for exam (per EHR order): * Abdominal distension; recent surgeryabd wall ecchymosis and tenderness with distention TECHNIQUE: Multidetector-row CT of the abdomen and pelvis was performed afteradministration of intravenous contrast using tailored dose modulationtechniques. Images were reconstructed in the axial, coronal, and sagittalplanes. COMPARISON: CT abdomen pelvis 07/17/2021. FINDINGS: Lower Chest: Normal. Liver: Unchanged subcentimeter left lobe hypodensity too small tocharacterize. Biliary System: Normal. Pancreas: Normal. Spleen: Normal. Adrenal Glands: Normal. Kidneys: Subcentimeter left renal hypodensity too small to characterize.Punctate left upper pole stone too small to characterize, series 2 image23. Punctate right lower pole renal stone, series 5 image 44. Bowel: Colonic diverticulosis. No bowel wall thickening or distention. Mesentery, Omentum, and Peritoneum: No pneumoperitoneum. Pelvic Organs: Prostatectomy with 56 x 32 x 30 mm pocket of simple fluidin the surgical bed. A pocket of fluid along the left pelvic sidewallmeasuring up to 21 x 61 x 28 mm. Ill-defined hyperdense fluid anterior tothe urinary bladder measuring up to 14 x 25 x 43 mm. Perivesicalstranding. Lymph Nodes: Normal. Vasculature: Atherosclerotic calcifications. Bones and Soft Tissues: Multilevel degenerative changes. Subcutaneous gasthroughout the anterior abdominal wall with areas of edema likelypostsurgical in etiology. No organized fluid collection to suggestabscess. IMPRESSION: 1.Prostatectomy with simple fluid in the surgical bed measuring up to 56mm, which may represent postoperative seroma. Differential considerationsinclude urinoma with or without superimposed infection/abscess. 2.Left pelvic sidewall fluid collection may represent seroma. Superimposedinfection cannot be excluded. 3.Hyperdense fluid along the left anterior margin of the urinary bladderlikely represents hematoma. 4.Diffuse subcutaneous gas and edema over the anterior abdominal walllikely postoperative in etiology. No organized collection to suggestabscess. Heike CABALLERO IMG CT ABD/PELVIS Final Res ult * (ABNORMAL) Basic metabolic panel (10/22/2021 6:02 PM EDT) SODIUM 142 133 - 146 mmol/L [facility] CHLORIDE 105 96 - 108 mmol/L [facility] POTASSIUM 4.1 3.3 - 5.1 mmol/L [facility] CO2 30 21 - 35 mmol/L [facility] BUN 25(H) 6 - 19 mg/dL [facility] CREATININE 0.90 0.5 - 1.5 mg/dL [facility] GLUCOSE 98 70 - 99 mg/dL [facility] CALCIUM 9.1 8.4 - 10.3 mg/dL [facility] EGFR 92 >59 mL/min/1.7 3m2 [facility] Comment:Estimated glomerular filtration rate calculated using the CKD-EPI refit equation. ANION GAP 11 10 - 20 mmol/L [facility] Blood 10/22/2021 6:02 PM EDT 10/22/2021 6:12 PM EDT Heike CABALLERO LAB BLOOD ORDERABLES Final Result [facility] [address] [place] [address] from Last 3 Months or Most Recently Relevant to Health Maintenance Insurance [employer] PPO MEDICARE REPLACEMENT [employer] PPO MEDICARE REPLACEMENT A[employer] PPO MEDICARE REPLACEMENT [employer] PPO MEDICARE REPLACEMENT AETNA O MEDICARE REPLACEMENT AET[employer] O MEDICARE REPLACEMENT A[employer] PPO MEDICARE REPLACEMENT [employer] PPO MEDICARE REPLACEMENT Care Teams Road Equipment Operator Relationship Specialty Start Date End Date Viktor Bella PA [address] [place] [address] PCP - General Unknown Provider Specialty 07/19/21 Travon Ortega MD [address] [place] [phone] [email or web address] Urology 07/19/21 Radha Gonzalez MD [address] [place] [address] [email or web address] Medical Oncology 07/20/21 Tremaine Willams MD [address] [place] [address] [email or web address] 07/20/21 Gerber Pereira MD, PhD [address] [place] [phone] [email or web address] Radiation Oncology 07/20/21 Travon Ortega MD [address] [phone] [email or web address] Urology 08/08/21 Additional Source Comments The information contained in this document represents components of the legal health record. It is not the complete legal health record.[facility]
--- OUTSIDE RECORDS SUMMARY | 2024-11-24 15:15 | XMS_ITS | Encounter Summary ---
Author Organization [facility] Address [address] [place] [address] Phone Care Team Providers Care Sales And Support Center Agent Name Role Phone Viktor Bella Primary Care Provid er Travon Ortega MD Unavailable +1- Radha Gonzalez MD Unavailable [phone] Tremaine Willams MD Unavailable [phone] Gerber Pereira MD, PhD Unavailable Travon Ortega MD Unavailable +- Encounter Details Date Type Department Care Team (Late st Contact Info) Description 10/22/2021 Procedure Pass [facility], Ct Scan - [address] [address] Social History Tobacco Use Types Packs/Day Years [...] on file documented as of this encounter Functional Status * Calculated C-SSRS Risk Score (Lifetime/Recent) Answer Date of Assessment Author No Risk Indicated 10/22/2021 5:47 PM EDT Ella Richter RN * [place] Suicide Severity Rating Scale (Screener/Recent Self-Report) Question Answer Date of Assessment Author 1. Wish to be (Past 1 Month) No 022 5:47 PM EDT Ella Richter RN 2. Non-Specific Active Suici salomon Thoughts (Past 1 Month) No 10/22/2021 5:47 PM EDT Lin Richter RN 6. Suicidal Behavior (Lifetime) No 5:47 PM EDT Ella Richter RN documented as of this encounter Plan of Treatment Not on file documented as of this encounter Visit Diagnoses Not on filedocumented in this encounter Care Teams Sales And Support Center Agent Relationship Specialty Start Date End Date Viktor Bella PA [address] [place] [address] PCP - General Unknown Provider Specialty 07/19/21 Travon Ortega MD [address] [place] [phone] [email or web address] Urology 07/19/21 Radha Gonzalez MD [address] [place] [address] [email or web address] 07/20/21 Tremaine Willams MD [address] [place] [address] [email or web address] Urology 07/20/21 Gerber Pereira MD, PhD [address] [place] [address], [facility] [place] [address] [email or web address] Radiation Oncology 07/20/21 Travon Ortega MD [address] [facility] [address] [place] [address] [email or web address] Urology 08/08/21 documented as of this encounter Additional Source Comments The information contained in this document represents components of the legal health record. It is not the complete legal health record.[facility]
== END 2024-11-24 13:43 | disposition home or self-care (01) ==
LOC: HO.HSM 12:51
PROVIDERS: PCP Physician Assistant Medical; Visit Provider Psychiatry & Neurology Neurology
DX: G31.84 Mild cognitive impairment of uncertain or unknown etiology (principal)
CPT/HCPCS: 99203

== ENCOUNTER 2024-11-24 12:51 | Outpatient (REF) | payer OTHER, SELFPAY ==
[2024-12-02 18:33] LABS: ABETA 42/40 Ratio 0.164 (> OR = 0.170); Alzeheimer's Interpretation Low Likelihood; Alzeimer's Disease Score 0.3244; Tau protein phosphorylated 217 0.28 pg/mL (< OR = 0.15)
== END 2024-11-24 12:52 | disposition home or self-care (01) ==
LOC: HO.LAB 12:51
PROVIDERS: PCP Physician Assistant Medical; Visit Provider Psychiatry & Neurology Neurology
DX: G31.84 Mild cognitive impairment of uncertain or unknown etiology (principal)
CPT/HCPCS: 36415; 82233; 82234; 84393

== ENCOUNTER 2024-12-28 14:16 | Outpatient (AMB) | payer OTHER, SELFPAY ==
--- NOTE | 2024-12-28 14:20 | MHC.OFFVIS ---
Intake Visit Reasons: 1m AD Allergies No Known Allergies Allergy (Verified 11/17/24 13:41) HPI Comments Details: 74 years old man with mild cognitive impairment. [facility] Medical History (Updated 12/28/24 @ 14:29 by Ana Bowens MD) Vision loss Psoriatic arthritis Psoriasis Colon polyp HLD (hyperlipidemia) Erectile dysfunction PLMD (periodic limb movement disorder) EVA (obstructive sleep apnea) Left ventricular hypertrophy Prostate cancer Memory changes Hypertension Family History (Updated 11/17/24 @ 13:41 by Andre Gates CMA) Mother Cancer Arthritis Father Prostate cancer HLD (hyperlipidemia) Hypertension Arthritis Stroke CABG (coronary artery bypass graft) planned Brother Arthritis H/O ETOH abuse Physical Exam Neuro Other: Mental Status: Alert and oriented to person, place, and time. Normal attention. Normal spontaneous speech, fluency, and comprehension. No obvious issues with mood and memory. Affect is appropriate. Cranial Nerves: CN II: Left eye is prosthetic. Right eye field of vision are normal. CN III, IV, : On left side, Pupil is round, reactive to light and accommodation. Extraocular movements are normal. CN V: Facial sensation is normal. CN VII: Facial movements symmetrical. CN VIII: Hearing intact to bedside conversation is normal. CN IX, X: Palate elevates symmetrically. CN XI: Shoulder shrug and head turn symmetrical. CN XII: Tongue midline without atrophy or fasciculations. Motor: Bulk and tone normal in all extremities. No significant muscle weakness in arms and legs. No drift. Extrapyramidal: Full facial expressions and blinking. No rigidity. Movements are appropriate with no tremor or abnormality. Speech: Normal; no dysarthria or tremor. 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 MRI of brain revealed minimal probably hypertension related microvascular ischemic disease. Serum amyloid test was of low likelihood for Alzheimer. He was reassured and educated and was advised to be proactive treating sleep apnea, tried to lose weight, have regular exercise regimen such as walking, avoid alcohol drinking or stress. I would see him back in a year time. Some reference material for reading was also provided. Coding Level of Care Code Est Pt Level 4 (71099) Diagnoses MCI (mild cognitive impairment) G31.84 EVA (obstructive sleep apnea) G47.33
--- OUTSIDE RECORDS SUMMARY | 2024-12-28 17:33 | XMS_ITS | Clinical Summary ---
Author Organization [facility] Address [address] [place] [address] Care Team Providers Care Assembly Hand Name Role Phone Unavailable Primary Care Provider [...] [facility] 2017 COVID-19 Vaccine ( - 2024-2 6 season) 2024 Influenza (#1) 2024 RSV (1 [...]
--- OUTSIDE RECORDS SUMMARY | 2024-12-28 17:33 | XMS_ITS | Encounter Summary ---
Author Organization [facility] Address [address] [place] [address] Phone Care Team Providers Care Party Bus Driver Name Role Phone Viktor Bella Primary Care Provid er Travon Ortega MD Unavailable +1- Radha Gonzalez MD Unavailable [phone] Tremaine Willams MD Unavailable [phone] Gerber Pereira MD, PhD Unavailable Travon Ortega MD Unavailable +- Encounter Details Date Type Department Care Team (Late st Contact Info) Description 10/22/2021 Procedure Pass [facility], Ct Scan - [address] [address] Social History Tobacco Use Types Packs/Day Years [...] 5:47 PM EDT Ella Richter RN * [place] Suicide Severity Rating Scale (Screener/Recent Self-Report) Question [...] on filedocumented in this encounter Care Teams Party Bus Driver Relationship Specialty Start Date End Date Viktor Bella PA [address] [place] [address] PCP - General Unknown Provider Specialty 07/19/21 Travon Ortega MD [address] [place] [phone] [email or web address] 07/19/21 Radha Gonzalez MD [address] [place] [address] [email or web address] Medical Oncology 07/20/21 Tremaine Willams MD [address] [place] [address] [email or web address] Urology 07/20/21 Gerber Pereira MD, PhD [address] [place] [address], [facility] [place] [address] [email or web address] Radiation Oncology 07/20/21 Travon Ortega MD [address] [facility] [address] [place] [address] [email or web address] Urology 08/08/21 documented as of this encounter Additional Source Comments The information contained in this document represents components of the legal health record. It is not the complete legal health record.[facility]
--- OUTSIDE RECORDS SUMMARY | 2024-12-28 17:33 | XMS_ITS | Encounter Summary ---
Author Organization [facility] Address [address] [place] [phone] Phone Care Team Providers Care Multiple Tube Winding Machine Operator Name Role Phone Viktor Bella Primary Care Provid er Travon Ortega MD Unavailable +1- Radha Gonzalez MD Unavailable [phone] Tremaine Willams MD Unavailable [phone] Gerber Pereira MD, PhD Unavailable Travon Ortega MD Unavailable +- Encounter Details Date Type Department Care Team (Late st Contact Info) Description 10/11/2021 Procedure Pass [facility] Periop [address] [place] [address] Social History Tobacco Use Types Packs/Day Years [...] on filedocumented in this encounter Care Teams Multiple Tube Winding Machine Operator Relationship Specialty Start Date End Date Viktor Bella PA [address] [place] [address] PCP - General Unknown Provider Specialty 07/19/21 Travon Ortega MD [address] [facility] [address] [place] [phone] [email or web address] Urology 07/19/21 Radha Gonzalez MD [address] [place] [address] [email or web address] Medical Oncology 07/20/21 Tremaine Willams MD [address] [place] [address] [email or web address] Urology 07/20/21 Gerber Pereira MD, PhD [address] [place] [phone] [email or web address] Radiation Oncology 07/20/21 Travon Ortega MD [address] [phone] [email or web address] Urology 08/08/21 documented as of this encounter Additional Source Comments The information contained in this document represents components of the legal health record. It is not the complete legal health record.[facility]
--- OUTSIDE RECORDS SUMMARY | 2024-12-28 17:36 | XMS_ITS | Clinical Summary ---
Author Organization [address] [facility] Address [address] [place] [address] Phone Care Team Providers Care Inspecting Engineer Name Role Phone Viktor Bella Primary Care Provider [phone] Allergies No known active allergies Medications ibuprofen [...] Problem Noted Date Diagnosed Date Prostate cancer ([facility] V24, [facility] V28) 10/29 Overview (03/02/2024): prostatectomy Rosy Leela september 2021 Elevated PSA 05/08/2021 LVH (left ventricular hypertrophy) 04/28/2017 Obstructive sleep apnea 03/11/2013 PLMD (periodic limb movement disorder) 3 Erectile dysfunction 07/29/2012 Hyperlipidemia 02/04/2012 Colon polyp 11/30/2008 Overview (03/02/2024): Last colonoscopy 2000, two polyps Hypertension 11/30/2008 Psoriasis 11/30/2008 Psoriatic arthritis ([facility] V24, [facility] V28) 0 11/30/2008 Vision loss 11/30/2008 Overview (03/02/2024): 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 Immunizations Immunization Administration Dates Next Due Influenza Quadravalent, MDCK [...] hemorrhoids; repeat in five years COLONOSCOPY 2002 [facility] PROCEDURE: HISTORICAL COLONOSCOPY; COMMENT: sigmoid adenoma COLONOSCOPY 04/21/2014 PROCEDURE: HISTORICAL COLONOSCOPY; COMMENT: tics and hemorrhoids; repeat in in 5 yrs OTHER SURGICAL HISTORY PROCEDURE: HISTORY OTHER; COMMENT: left eye removed 11 COLONOSCOPY 09/2019 PROCEDURE: HISTORICAL COLONOSCOPY; COMMENT: normal repeat 5 years Medical History Medical History Date Comments Psoriasis 11/30/2008 DX:Psoriasis Psoriatic arthritis ([facility] V24, [facility] V28) 11/30/2008 DX:Psoriatic arthritis (HCC) Hypertension 11/30/2008 [...] care for your loved ones. For example, child protective investigator or elderly care for an older adult? [...] Date Recorded What is your living situation? Unrecognized valu e 06/15/2024 Sex and Gender Information Value Date [...] Care Team (Late st Contact Info) Description 01/04/2025 2:30 PM EDT Office Visit Orthopedic Surgery - [place] [address] [facility] [address] [place] [phone] Lazara Bear MD [address] [place] [phone] 02/25/2025 8:30 AM EST Office Visit Adult Medicine [facility] [address] [place] [phone] Viktor Bella PA [address] [place] [phone] 06/14/2025 3:30 PM EDT Office Visit Pulmonology - [place] [address] [facility] [address] [place] [phone] Eda Steinberg MD [address] [place] [phone] Health Maintenance Due Date Last Done Comments [...] Procedure Name Priority Date/Time Associated Diagnosis Comments EXTERNAL CLINICAL LAB 11/24/2024 COMPREHENSIVE METABOLIC PANEL Routine 06/16/2024 9:34 AM EDT Subjective memory complaints Other hyperlipidemia Primary hypertension Obstructive sleep apnea LVH (left ventricular hypertrophy) Elevated PSA PLMD (periodic limb movement disorder) Prostate cancer ([facility] V24, [facility] V28) Need for vaccination against Streptococcus pneumoniae Hearing loss of right ear, unspecified hearing loss type DEPRESSION SCREENING Routine 12/17/2023 LIPID PANEL Routine 12/17/2023 COLONOSCOPY Routine 10/14/2019 US ABDOMINAL AORTA REAL TIME SCREEN STUDY AAA Routine 12/10/2017 7:46 AM EDT Hyperlipidemia, unspecified Essential (primary) hypertension Acute maxillary sinusitis, unspecified Arthropathic psoriasis, unspecified ([facility] V24, [facility] V28) Unspecified conjunctivitis Encounter for general adult medical examination without abnormal findings Encounter for immunization HEPATITIS C SCREENING Routine 07/29/2012 from Last 3 Months or Most Recently Relevant to Health Maintenance Results * External clinical lab (11/24/2024) us Provider [facility] LAB BLOOD ORDERABLES Fin al Result * Comprehensive metabolic panel (06/16/2024 9:34 AM EDT) Sodium 145 133 - 145 mmol/L LAB CHEMISTRY METHOD 06/16/2024 4:14 PM [facility] Potassium 4.5 3.5 - 5.5 mmol/L LAB CHEMISTRY METHOD 06/16/2024 4:14 PM [facility] Chloride 109 96 - 110 mmol/L LAB CHEMISTRY METHOD 06/16/2024 4:14 PM [facility] CO2 31 21 - 32 mmol/L LAB CHEMISTRY METHOD 06/16/2024 4:14 PM [facility] Anion Gap 5 3 - 11 LAB CHEMISTRY METHOD 06/16/2024 4:14 PM [facility] Glucose 97 70 - 100 mg/dL LAB CHEMISTRY METHOD 06/16/2024 4:14 PM [facility] BUN 17 5 - 25 mg/dL LAB CHEMISTRY METHOD 06/16/2024 4:14 PM [facility] Creatinine 1.02 0.70 - 1.30 mg/dL LAB CHEMISTRY METHOD 06/16/2024 4:14 PM [facility] eGFR 79 >=60 mL/min/1. 73m2 LAB CHEMISTRY METHOD 06/16/2024 4:14 PM [facility] Comment:Calculation based on the Chronic Kidney Disease Epidemiology Collaboration (CKD-EPI) equation refit without adjustment for race. BUN/Creatinine Ratio 16.7 LAB CHEMISTRY METHOD 06/16/2024 4:14 PM [facility] Calcium 9.7 8.5 - 10.5 mg/dL LAB CHEMISTRY METHOD 06/16/2024 4:14 PM [facility] AST (SGOT) 32 10 - 42 unit/L LAB CHEMISTRY METHOD 06/16/2024 4:14 PM [facility] ALT (SGPT) 33 10 - 60 unit/L LAB CHEMISTRY METHOD 06/16/2024 4:14 PM [facility] Alkaline Phosphatase 75 42 - 121 unit/L LAB CHEMISTRY METHOD 06/16/2024 4:14 PM [facility] Total Protein 6.7 6.0 - 8.0 g/dL LAB CHEMISTRY METHOD 06/16/2024 4:14 PM [facility] Albumin 4.1 3.2 - 5.0 g/dL LAB CHEMISTRY METHOD 06/16/2024 4:14 PM [facility] Total Bilirubin 0.5 0.0 - 1.4 mg/dL LAB CHEMISTRY METHOD 06/16/2024 4:14 PM [facility] Blood Venous blood specimen / Unknown Venipuncture / Unknown 06/16/2024 9:34 AM EDT 06/16/2024 9:34 AM EDT Viktor CABALLERO LAB BLOOD ORDERABLES Lou l Result [facility] [address] [place] [address], [place] [phone] * Depression Screening (12/17/2023) [facility] Depression Screening abstracted Historical Provider HEALTH MAINTENANCE Final Result * Lipid panel (12/17/2023) [facility] LDL/HDL Ratio 3 0 - 4 Triglycerides 45 0 - 150 mg/dL Cholesterol 176 0 - 200 mg/dL HDL 67 >=40 mg/dL LDL Cholesterol 100 0 - 100 mg/dL Blood Venous blood specimen / Unknown Result [facility] Historical Provider LAB BLOOD ORDERABLES Lou l Result * Colonoscopy (10/14/2019) [facility] Colonoscopy no interpretation , abstracted Anatomical Region [...] R esult * Hepatitis C Screening (07/29/2012) [facility] Hepatitis C Screening abstracted Historical Provider HEALTH MAINTENANCE Final Result from Last 3 Months or Most Recently Relevant to Health Maintenance Insurance [employer] Care Teams Inspecting Engineer Relationship Specialty Start Date End Date Viktor Bella PA [address] [place] [address] PCP - General Internal Medicine 02/09/20
--- OUTSIDE RECORDS SUMMARY | 2024-12-28 17:36 | XMS_ITS | Clinical Summary ---
Author Organization [facility] Address [address] [place] [id number] Phone Care Team Providers Care Manager Food Safety Name Role Phone Viktor Bella Primary Care Provid er Travon Ortega MD Unavailable [phone] Radha Gonzalez MD Unavailable [phone] Tremaine Willams MD Unavailable [phone] Gerber Pereira MD, PhD Unavailable Travon Ortega [...] 10/22/2022 10/22/2021, 09/22, 10/11/2021, Additional history exists INFLUENZA VACCINE (#1) 2024 , 02/09/2020, 02/04/2019, Additional history exists COVID-19 VACCINE ( - 2024- season) 2024 12/18/2020, 06/07/2020, 05/16/2020 RSV VACCINE (1 - [...] EDT) SODIUM 142 133 - 146 mmol/L [facility] CHLORIDE 105 96 - 108 mmol/L [facility] POTASSIUM 4.1 3.3 - 5.1 mmol/L [facility] CO2 30 21 - 35 mmol/L [facility] BUN 25(H) 6 - 19 mg/dL [facility] CREATININE 0.90 0.5 - 1.5 mg/dL [facility] GLUCOSE 98 70 - 99 mg/dL [facility] CALCIUM 9.1 8.4 - 10.3 mg/dL [facility] EGFR 92 >59 mL/min/1.7 3m2 [facility] Comment:Estimated glomerular filtration rate calculated using the CKD-EPI refit equation. ANION GAP 11 10 - 20 mmol/L [facility] Blood 10/22/2021 6:02 PM EDT 10/22/2021 6:12 PM EDT Heike CABALLERO LAB BLOOD ORDERABLES Final Result [address] [id number] from Last 3 Months or Most Recently Relevant to Health Maintenance Insurance [employer] P[employer] MEDICARE REPLACEMENT [employer] MEDICARE REPLACEMENT [employer] MEDICARE REPLACEMENT [employer] MEDICARE REPLACEMENT [employer] MEDICARE REPLACEMENT [employer] MEDICARE REPLACEMENT [employer] MEDICARE REPLACEMENT [employer] MEDICARE REPLACEMENT [employer] MEDICARE REPLACEMENT Care Teams Manager Food Safety Relationship Specialty Start Date End Date Viktor Bella PA [address] [place] [id number] PCP - General Unknown Provider Specialty 07/19/21 Travon Ortega MD [address] [phone] [email or web address] Urology 07/19/21 Radha Gonzalez MD [address] [place] [address] [email or web address] 07/20/21 Tremaine Willams MD [address] [place] [address] [email or web address] 07/20/21 Gerber ePreira MD, PhD [address] [place] [address], [address] [address] [email or web address] 07/20/21 Travon Ortega MD [address] [phone] [email or web address] U[facility] 08/08/21 Additional Source Comments The information contained in this document represents components of the legal health record. It is not the complete legal health record.[facility]
== END 2024-12-28 14:30 | disposition home or self-care (01) ==
LOC: HO.HSM 14:17
PROVIDERS: PCP Physician Assistant Medical; Visit Provider Psychiatry & Neurology Neurology
DX: G31.84 Mild cognitive impairment of uncertain or unknown etiology (principal); G47.33 Obstructive sleep apnea (adult) (pediatric)
CPT/HCPCS: 99214